=== PATIENT | male | born 1970 | race Caucasian/White ===

== ENCOUNTER → 2020-11-10 | Outpatient (CLI) | payer OTHER | LOC: KOH-I 08:31 | DX: J18.9 Pneumonia, unspecified organism (principal) | CPT/HCPCS: 71046 ==

== ENCOUNTER → 2021-05-01 | Outpatient (CLI) | payer OTHER | LOC: EXRD 10:28 | DX: R94.5 Abnormal results of liver function studies (principal) | CPT/HCPCS: 76705 ==

== ENCOUNTER → 2021-05-10 | Outpatient (CLI) | payer OTHER | LOC: EXRD 13:17 | DX: R79.89 Other specified abnormal findings of blood chemistry (principal); R39.198 Other difficulties with micturition | CPT/HCPCS: 76775; 76857 ==

== ENCOUNTER → 2021-06-13 | Outpatient (CLI) | payer OTHER | LOC: LAB 09:49 | DX: D50.9 Iron deficiency anemia, unspecified (principal) | CPT/HCPCS: 36415; 80076 ==